=== PATIENT | female | born 1960 ===

== ENCOUNTER 2023-10-27 09:51 | Emergency (ER) | payer BC, SELFPAY ==
[2023-10-27 10:01] VITALS: BP 164/83; PULSE 86; RESP 18; TEMP 36.8; O2SAT 96; BMI 27.3
--- NOTE | 2023-10-27 10:20 | ED_ITS ---
HPI - General Adult General Chief complaint: Unspecified Complaint, Adult Stated complaint: Suspected salt water poisoning Time Seen by Provider: 10/27/23 09:52 Source: patient Mode of arrival: ambulatory Limitations: no limitations History of Present Illness HPI narrative: 63-year-old female presenting today concerned about ?salt water poisoning?. Patient states that she does not feel well. She states that she feels bloated, feels thirsty, has a salty taste in her mouth, has joint pains and muscle cramps in her legs. She is quite concerned that her neighbor who she does not get along with, has put extra salt in her spring water. She has also noticed that her 10-year-old dog has been having difficult time walking, believes that the dog has also been poisoned. When asked her how long she has felt unwell, she tells me that ?I can not say if it has been weeks or months?. She denies any fever. No cough. She states that when she urinates it just trickles out. She states that yesterday she had episodes of diarrhea. She denies abdominal pain. She does have a history of psoriasis for which she has some type of cream, unsure what it is. She denies taking any oral medications. States she was on a statin in the past but stopped taking it approximately 2 months ago. She denies any other medical diagnoses. Patient lives at home by herself. Her son generally spends the day at her house as he has an office in the house. Patient is retired and has not worked in a couple of years. Related Data Home Medications Medication Instructions Recorded Confirmed No Known Home Medications 10/27/23 10/27/23 Allergies Allergy/AdvReac Type Severity Reaction Status Date / Time No Known Drug Allergies Allergy Verified 10/27/23 10:04 Review of Systems Status of ROS: Reports: 10 or more systems reviewed and unremarkable except as noted in History and below [facility] Social History Smoking Status: Never smoker Do you use any of these nicotine containing products: None Second hand tobacco smoke exposure: No How often do you have a drink containing alcohol: monthly or less AUDIT-C Alcohol total score: 1 Non-prescribed substance use: denies use service: No Exam Narrative: Exam Narrative: Well-nourished well-developed patient in no acute distress. Alert and oriented x3. Patient speaks in full sentences without needing to catch her breath. Her mood and affect are appropriate. HEENT: Normocephalic atraumatic. Pupils are equally round reactive to light. Extraocular muscles are intact. Conjunctivae are moist without any icterus noted. Moist mucous membranes. Posterior pharynx is normal. Neck is soft without any lymphadenopathy or thyromegaly. No masses are appreciated. Cardiovascular: Heart is regular rate and rhythm S1 and S2 are present without any murmurs. Lungs: Clear to auscultation bilaterally no wheezes rhonchi or rales are appreciated. Patient takes deep breaths without any discomfort. Abdomen: Soft and nontender nondistended with normal bowel sounds. No guarding or rebound. Extremities: Bilateral lower extremities are without edema. Normal DP and PT pulses. Joints including ankles , knees, wrists appear normal. I do not see any evidence of swelling. I do not see any evidence of joint effusions. Skin: Well perfused. Patient has a psoriatic rash on her neck and shoulders. Patient has small patches on her calves which she states are ? grade stem cell treatments that reduce inflammation.? Const: Vital Signs, click to edit/add: Vital Signs - 24 hr 10/27/23 10:01 10/27/23 11:23 Temperature 98.3 F 98.0 F Pulse Rate [Right Pulse Oximeter] 86 85 Respiratory Rate 18 16 Blood Pressure [Ri ght Upper Arm] 164/83 H 125/61 Pulse Oximetry 96 98 Oxygen Delivery Me thod Room Air Room Air Course Course ED Course: Lab work was entirely normal. Vital Signs Vital signs: Initial Vital Signs Temperature 98.3 F 10/27/23 10:01 Temperature Source Temporal Artery Scan 10/27/23 10:01 Pulse Rate 86 10/27/23 10:01 Respiratory Rate 18 10/27/23 10:01 Blood Pressure 164/83 H 10/27/23 10:01 Blood Pressure Mean 110 H 10/27/23 10:01 Blood Pressure Position Sitting 10/27/23 10:01 Pulse Oximetry 96 10/27/23 10:01 Oxygen Delivery Method Room Air 10/27/23 10:01 Vital Signs Temperature 98.3 F 10/27/23 10:01 Pulse Rate 86 10/27/23 10:01 Respiratory Rate 18 10/27/23 10:01 Blood Pressure 164/83 H 10/27/23 10:01 Pulse Oximetry 96 10/27/23 10:01 Oxygen Delivery Method Room Air 10/27/23 10:01 Temperature 98.0 F 10/27/23 11:23 Pulse Rate 85 10/27/23 11:23 Respiratory Rate 16 10/27/23 11:23 Blood Pressure 125/61 10/27/23 11:23 Pulse Oximetry 98 10/27/23 11:23 Oxygen Delivery Method Room Air 10/27/23 11:23 Medical Decision Making MDM Narrative Medical decision making narrative: 63-year-old female with multiple concerns today. Normal workup. Her recommend she follow up with primary care provider. Of note, patient states that she does feel safe at home. Denies any thoughts of self-harm or harming others. Lab Data Lab results reviewed: Yes I reviewed the patient's lab results Labs: Lab Results 10/27/23 10/27/23 10/27/23 Range/Units 10:34 11:37 Unknown WBC 5.65 (4.50-11.00) K/uL RBC 5.30 H (4.00-5.20) m/uL Hgb 15.0 (12.0-16.0) gm/dL Hct 45.0 (33.0-51.0) % MCV 85 (80-100) fL MCH 28 (26-34) pg MCHC 33 (32-36) gm/dL RDW Coeff of Jeffrey 13.1 (11.5-15.5) % Plt Count 191 (140-440) K/uL Neut % (Auto) 72.7 H (42.0-72.0) % Lymph % (Auto) 17.2 L (20-44) % Harmon % (Auto) 8.8 (0.0-11.0) % Eos % (Auto) 0.7 (0.0-7.0) % Baso % (Auto) 0.2 (0.0-3.0) % Neut # (Auto) 4.10 (1.7-7.0) K/uL Lymph # (Auto) 1.00 (0.90-2.90) K/uL Harmon # (Auto) 0.50 (0.00-0.90) K/UL Eos # (Auto) 0.04 (0.00-0.50) K/uL Baso # (Auto) 0.01 (0.00-0.30) K/uL Abs Immat Gran (auto) 0.02 (0.00-0.30) K/uL Imm/Tot Granulo (auto) 0.4 % Sodium 140 (135-149) mmol/L Potassium 4.3 (3.6-5.1) mmol/L Chloride 106 (96-114) mmol/L Carbon Dioxide 25 (20-32) mmol/L Anion Gap 9 (7-15) mEq/L BUN 9 (7-30) mg/dL Creatinine 0.6 (0.5-1.5) mg/dL Estimated Creat Clear 41.90 Estimated GFR 101 ml/min Glucose 103 (60-115) mg/dL Calcium 8.9 (8.4-10.6) mg/dL Total Bilirubin 0.7 (0.1-1.5) mg/dL Direct Bilirubin 0.0 (0.0-0.5) mg/dL AST 33 (12-35) U/L ALT 36 H (4-35) U/L Alkaline Phosphatase 57 (40-150) U/L Total Protein 7.3 (6.0-8.3) g/dL Albumin 4.3 (3.3-5.0) g/dL TSH 0.976 (0.270-4.20) uIU/mL Urine Color Yellow (Yellow) Urine Appearance Clear (Clear) Urine pH 7.0 (5.0-8.5) Ur Specific [place] 1.015 (1.000-1.030) Urine Protein Negative (Negative) Urine Glucose (UA) Negative (Negative) Urine Ketones 1+ A (Negative) Urine Blood 1+ A (Negative) Urine Nitrite Negative (Negative) Urine Bilirubin Negative (Negative) Urine Urobilinogen 0.2 (0.2-1.0) Ur Leukocyte Esterase Trace A (Negative) Urine RBC 0-2 (0-2) Urine WBC 0-2 (0-5) Ur Squamous Epith Cells Few (None-Few) Urine Bacteria Few A (None) Lab Acknowledgement Test Added Discharge Plan Discharge Clinical Impression: Leg cramp Patient Disposition: Home, Self-Care Condition: Stable Additional Instructions: I recommend you follow-up with your primary care provider Prescriptions: No Action No Known Home Medications Follow Up/Referrals: Tere Juan, EUGENE, [employer] [Primary Care Provider] - Stand Alone Forms: [employer] Info Instructions
[2023-10-27 10:40] LABS: Basophils Absolute Auto 0.01 K/uL (0.00-0.30); Basophils Percent Auto 0.2 % (0.0-3.0); Eosinophils Absolute Auto 0.04 K/uL (0.00-0.50); Eosinophils Percent Auto 0.7 % (0.0-7.0); Immature Granulocytes Abs Auto 0.02 K/uL (0.00-0.30); Immature Granulocytes Pct Auto 0.4 %; Lymphocytes Percent Auto 17.2 % (20-44); Mean Corpuscular HGB Conc 33 gm/dL (32-36); Mean Corpuscular Hemoglobin 28 pg (26-34); Mean Corpuscular Volume 85 fL (80-100); Monocytes Percent Auto 8.8 % (0.0-11.0); Neutrophils Percent Auto 72.7 % (42.0-72.0); Platelet Count* 191 K/uL (140-440); RDW Coefficient of Variation % 13.1 % (11.5-15.5); White Blood Count* 5.65 K/uL (4.50-11.00)
[2023-10-27 10:47] LABS: Slide Review Reflex No
[2023-10-27 10:54] LABS: Appearance Urine Clear (Clear); Bilirubin Urine Negative (Negative); Blood Urine 1+ (Negative); Color Urine Yellow (Yellow); Glucose Urine Negative (Negative); Ketones Urine 1+ (Negative); Leukocyte Esterase Urine Trace (Negative); Nitrite Urine Negative (Negative); Protein Urine Negative (Negative); Specific Gravity Urine 1.015 (1.000-1.030); Urobilinogen Urine 0.2 (0.2-1.0)
[2023-10-27 11:03] LABS: Albumin* 4.3 g/dL (3.3-5.0); Chloride* 106 mmol/L (96-114); Sodium* 140 mmol/L (135-149)
[2023-10-27 11:04] LABS: Potassium* 4.3 mmol/L (3.6-5.1)
[2023-10-27 11:06] LABS: Alkaline Phosphatase* 57 U/L (40-150); Anion Gap 9 mEq/L (7-15); Aspartate Amino Transferase* 33 U/L (12-35); Bilirubin Total* 0.7 mg/dL (0.1-1.5); Blood Urea Nitrogen* 9 mg/dL (7-30); Carbon Dioxide* 25 mmol/L (20-32); Creatinine* 0.6 mg/dL (0.5-1.5); Estimated Glomerular Filt Rate 101 ml/min; Glucose* 103 mg/dL (60-115); Total Protein* 7.3 g/dL (6.0-8.3)
[2023-10-27 11:07] LABS: Alanine Aminotransferase* 36 U/L (4-35); Calcium* 8.9 mg/dL (8.4-10.6)
[2023-10-27 11:13] LABS: RBC Urine 0-2 (0-2); Squamous Epithelial Cell Urine Few (None-Few); WBC Urine 0-2 (0-5)
[2023-10-27 11:14] LABS: Bacteria Urine Few
[2023-10-27 11:23] VITALS: BP 125/61; PULSE 85; RESP 16; TEMP 36.7; O2SAT 98
[2023-10-27 11:50] LABS: Thyroid Stimulating Hormone* 0.976 uIU/mL (0.270-4.20)
--- NOTE | 2023-10-27 11:54 | PC.NURSE ---
Pt came out to desk inquiring about lab results, CRP pending. Pt. asking why her mouth is so dry and I taste salt all around my mouth. Asking if she should have her dogs tested as she is quite certain the purified water she buys and has delivered to her home I think someone added salt to it.
[2023-10-27 11:59] LABS: C Reactive Protein* 1.8 mg/dL (0.5-1.0)
[2023-10-27 12:13] VITALS: BP 121/60; PULSE 70; RESP 16; TEMP 36.7
== END 2023-10-27 12:13 | disposition home or self-care (01) ==
PROVIDERS: Emergency Provider Family Medicine; PCP Nurse Practitioner Family
DX: R25.2 Cramp and spasm (principal)
CPT/HCPCS: 36415; 80048; 80076; 81001; 84443; 85025; 86140; 87086; 99283; 99284